=== PATIENT | female | born 2000 | race Caucasian/White ===

== ENCOUNTER 2022-08-18 19:06 | Emergency (ER) | payer OTHER ==
[2022-08-18] MEDS ORDERED: DEXAMETHASONE 10 MG/ML VIAL PO STA (19:46)
[2022-08-18] MEDS ORDERED: CHERRY SYRUP 10 ML UDC PO ONE (19:46)
[2022-08-18] MEDS ORDERED: ONDANSETRON ODT 4 MG TABLET TL STA (19:46)
[2022-08-18] MEDS ORDERED: IBUPROFEN 600 MG TABLET PO STA (19:47)
--- NOTE | 2022-08-18 19:47 | ED Physician Documentation ---
History of Present Illness - Stated complaint Stated Complaint: FEVER,SORE THROAT - Chief complaint Chief Complaint: General - Additonal information Additional information: 22-year-old female presents to the emergency department for evaluation of sore throat and fever. Her symptoms began last night. She has had 2 children at home that have been sick, one with pneumonia. Patient states that she has been nauseated most of the day but has been able to drink water. She is only not vomited because she has eaten no food. Denies possibility of as she no longer has either tube. She does have some cough and congestion. Patient is taking an [id number] cough and cold preparation for her symptoms. Last taken around noon. Review of Systems Constitutional: reports: Fever, Fatigue Eyes: reports: Reviewed and negative Nose: reports: Congestion Throat: reports: Sore throat Cardiac: reports: Reviewed and negative Respiratory: reports: Cough GI: reports: Nausea. denies: Vomiting : reports: Reviewed and negative Skin: reports: Reviewed and negative PD PAST MEDICAL HISTORY - Present Medications Home Medications: Ambulatory Orders Medication Instructions Recorded Confirmed Escitalopram [Lexapro] 10 mg PO DAILY 08/18/22 08/18/22 Ondansetron Odt [Zofran] 4 mg TL Q6H PRN #10 tablet 08/18/22 Penicillin V Potassium 500 mg PO BID #20 tablet 08/18/22 - Allergies Allergies/Adverse Reactions: Allergies Allergy/AdvReac Type Severity Reaction Status Date / Time No Known Drug Allergies Allergy Verified 08/18/22 19:35 PD ED PE NORMAL - General General: Alert and oriented X 3, No acute distress, Well developed/nourished - HEENT HEENT: Atraumatic, Moist mucous membranes, Pharynx benign (Beefy red posterior oropharynx. Uvula is midline. There is exudate present on the right tonsillar bed. Absent on the left. No soft palate asymmetry or swelling. Normal phonation. Full range of motion of the neck) - Neck Neck: Supple, no meningeal sign. No: No adenopathy (Mild tender anterior cervical lymphadenopathy) - Cardiac Cardiac: RRR, No murmur - Respiratory Respiratory: No respiratory distress, Clear bilaterally - Abdomen Abdomen: Normal bowel sounds, Soft - Back Back: No CVA TTP - Derm Derm: Normal color, Warm and dry - Extremities Extremities: No deformity - Neuro Neuro: Alert and oriented X 3 Eye Opening: Spontaneous Motor: Obeys Commands Verbal: Oriented GCS Score: 15 Results - Vitals Vitals: Vital Signs - 24 hr 08/18/22 19:23 Temperature 39.5 C H Heart Rate 133 H Respiratory 18 Rate Blood Pressure 114/79 O2 Saturation 99 Oxygen O2 Source Room air - Labs Labs: Laboratory Tests 08/18/22 19:37 Group A Strep Rapid Negative PD Medical Decision Making - ED course Complexity details: reviewed results, considered differential, d/w patient ED course: 22-year-old female presents emergency department for evaluation of fever sore throat began last night. 39 5 fever here. On exam she has some right-sided posterior tonsillar exudate and beefy red posterior oropharynx. Rapid strep was negative but given lack of cough and presence of fever will treat empirically given [facility] criteria. Patient will be started on penicillin. Respiratory PCR panel is pending. Patient is advised to [facility]. Clinically there are no signs suggest RPA or [employer]ING [employer]ACH[employer]. The usual emergent return precautions for worsening symptoms were discussed. Departure - Departure Disposition: 01 Home, Self Care Clinical Impression: Acute pharyngitis Qualifiers: Pharyngitis/tonsillitis etiology: unspecified etiology Qualified Code(s): J02.9 - Acute pharyngitis, unspecified Condition: Stable Record reviewed to determine appropriate education?: Yes Instructions: ED Strep Pharyngitis Poss Prescriptions: Penicillin V Potassium 500 mg PO BID #20 tablet Ondansetron Odt [Zofran] 4 mg TL Q6H PRN #10 tablet PRN Reason: Nausea / Vomiting Comments: As discussed at the bedside you do have some exudate on your tonsils as well as a fever and a beefy red oropharynx. The rapid strep test was negative but I feel that you meet enough the criteria for possible strep pharyngitis that we are going to start you on a 10-day course of penicillin. We did give you a single dose of oral Decadron today in the emergency department which is a steroid that can be used for pain and inflammation in the setting of pharyngitis. I do recommend that you take ibuprofen 600 mg with food [id number] for sore throat and fever or alternate with 500 mg of Tylenol. [place]. We do have a viral panel testing pending on you. We will not have these results for several hours. However you can follow-up the results on the [facility] portal tomorrow should you choose to. We will notify you only if you test positive for COVID-19 Return to the ER if you find that your fevers or not improving, you cannot keep any liquids down, you have inability to tolerate your oral or secretions or open your mouth fully.
[2022-08-18 20:05] LABS: RAPID STREP SCREEN Negative (Negative)
[2022-08-18] MEDS ORDERED: PENICILLIN VK 250 MG TABLET PO STA (20:27)
[2022-08-18 20:42] VITALS: BP 116/80
[2022-08-18 20:45] LABS: B. PARAPERTUSSIS- RESP PCR PAN NOT DETECTED; B. PERTUSSIS- RESP PCR PANEL NOT DETECTED; C. PNEUMONIAE- RESP PCR PANEL NOT DETECTED; CORONAVIRUS 229E-RESP PCR NOT DETECTED; CORONAVIRUS HKU1-RESP PCR NOT DETECTED; CORONAVIRUS NL63-RESP PCR NOT DETECTED; CORONAVIRUS OC43-RESP PCR NOT DETECTED; HUMAN METAPNEUMOVIRUS NOT DETECTED; INFLUENZA A- RESP PCR PANEL NOT DETECTED; INFLUENZA B - RESP PCR PANEL NOT DETECTED; M. PNEUMONIAE- RESP PCR PANEL NOT DETECTED; PARAINFLUENZA VIRUS 1 NOT DETECTED; PARAINFLUENZA VIRUS 2 NOT DETECTED; PARAINFLUENZA VIRUS 3 NOT DETECTED; PARAINFLUENZA VIRUS 4 NOT DETECTED; RHINOVIRUS/ENTEROVIRUS DETECTED; RSV- RESP PCR PANEL NOT DETECTED; SARS-CoV-2 -RESP PCR PANEL NOT DETECTED
== END 2022-08-18 20:40 | disposition home or self-care (01) ==
LOC: ED 19:06
DX: J02.9 Acute pharyngitis, unspecified (principal); R11.0 Nausea; Z20.822 Contact with and (suspected) exposure to COVID-19
CPT/HCPCS: 87070; 87430; 87633; 99283; A9270; Q0162